=== PATIENT | male | born 1965 | race Caucasian/White ===

== ENCOUNTER 2021-11-26 06:03 | Inpatient (IN) ==
[~2021-11-26 06:03] MED LIST: Buffered Lidocaine 1% SYRIN 1 ml INTRADERM ONE; Lactated Ringers 1000 ml BAG 1,000 ML IV SCH
[2021-11-26] MEDS ORDERED: Clindamycin 900 MG/D5W BAG 900 MG/50 ML BAG IVPB ONE (06:24)
[2021-11-26] MEDS ORDERED: Ropivacaine 5 MG/ML 20 ML VIAL 0.5% (100 MG) ONE (06:47)
[2021-11-26] MEDS ORDERED: Midazolam 2 mg/2 ml VIAL 1 mg/ml 2 ml VIAL (2 mg) ONE (06:53)
[2021-11-26] MEDS ORDERED: ROPIVACAINE 5 MG/ML 30 ML BTL (0.5%) ONE (07:03)
[2021-11-26] MEDS ORDERED: Acetaminophen IV 1 GM/100ML 100 ML IV PRN (07:15)
[2021-11-26] MEDS ORDERED: HYDROmorphone 1 MG/1 ML SYRINGE IV PRN (07:15)
[2021-11-26] MEDS ORDERED: Naloxone 0.4 mg VIAL 0.4 mg/ml 1 ml VIAL IV PRN (07:15)
[2021-11-26] MEDS ORDERED: Ondansetron 4 mg VIAL 2 MG/ML 2 ml VIAL IV PRN ×2 (07:15→08:52)
[2021-11-26] MEDS ORDERED: DiMENhydriNATE IV 50 mg/ml 1 ml VIAL IV PUSH PRN (07:15)
[2021-11-26] MEDS ORDERED: fentaNYL 100 mcg/2 ml 50 MCG/ML VIAL IV PRN (07:15)
[2021-11-26] MEDS ORDERED: Ketamine HCL 50 mg/ml 10 ml VIAL (500 MG) ONE (08:08)
[2021-11-26] MEDS ORDERED: Phenylephrine 40 mcg/mL 10mL (400mcg) SYRINGE ONE (08:13)
[2021-11-26] MEDS ORDERED: Phenylephrine IV 10 MG/ML 1 ml VIAL ONE (08:36)
[2021-11-26] MEDS ORDERED: Morphine 2 MG/ML SYRINGE IV PRN (08:52)
[2021-11-26] MEDS ORDERED: Lactulose 30 ml UDC PO PRN (08:52)
[2021-11-26] MEDS ORDERED: Ondansetron ODT 4 mg TAB 4 MG TAB PO PRN (08:52)
[2021-11-26] MEDS ORDERED: diPHENhydraMINE IV 50 MG/ML 1 ml VIAL (BENADRYL) IV PRN (08:52)
[2021-11-26] MEDS ORDERED: diPHENhydraMINE 25 mg TAB PO PRN (08:52)
[2021-11-26] MEDS ORDERED: Magnesium Hydroxide LIQ 30 ML UDC PO PRN (08:52)
[2021-11-26] MEDS ORDERED: Vitamin THERAPEUTIC TAB PO SCH (09:00)
[2021-11-26] MEDS ORDERED: Lactated Ringers 1000 ml BAG 1,000 ML IV SCH (09:00)
[2021-11-26] MEDS ORDERED: Magnesium Hydroxide LIQ 30 ML UDC PO SCH (09:00)
[2021-11-26] MEDS ORDERED: Propofol 10 MG/ML 20 ML BTL ONE ×2 (09:18→09:58)
[2021-11-26] MEDS ORDERED: Acetaminophen IV 1 GM/100ML 100 ML IV ONE (11:14)
[2021-11-26 15:51] VITALS: BP 112/73
[2021-11-26] MEDS ORDERED: Clindamycin 600 MG/D5W BAG 600 MG/50 ML BAG IV SCH (16:00)
== END 2021-11-26 16:55 | disposition home or self-care (01) | DRG 301 ==
LOC: AA 06:03
PROVIDERS: ADMIT Orthopaedic Surgery Adult Reconstructive Orthopaedic Surgery; ATTEND Orthopaedic Surgery Adult Reconstructive Orthopaedic Surgery